=== PATIENT | male | born 1975 | race Caucasian/White ===

== ENCOUNTER 2021-01-02 13:00 | Inpatient (IN) | payer BC ==
[2021-01-02] MEDS ORDERED: Morphine 4 MG/ML VIAL ONE (13:32)
[2021-01-02] MEDS ORDERED: Ondansetron PF 4 MG/2 ML Vial ONE ×2 (13:32→15:37)
[2021-01-02 13:39] LABS: #Basophils 0.1 thou/uL (0.0-0.2); #Lymphocytes 2.4 thou/uL (1.20-3.40); #Monocytes 0.8 thou/uL (0.11-0.59); #Neutrophils 11.2 thou/uL (1.40-6.50); %Basophils 0.7 % (0.0-1.0); %Eosinophils 0.2 % (0.0-10.0); %Lymphocytes 16.6 % (21.0-51.0); %Monocytes 5.8 % (0.0-10.0); %Neutrophils 76.8 % (42.0-75.0); Hemoglobin 14.7 g/dL (14.0-18.0); Mean Corpuscular HGB CONC 35.9 g/dL (32.0-36.0); Mean Corpuscular Hemoglobin 34.9 pg (27.0-31.0); Mean Corpuscular Volume 97.2 fL (78.0-98.0); Mean Platelet Volume 7.2 fL (7.4-10.4); Platelet Count 259 thou/uL (130-400); Red Blood Cell (RBC) Count 4.22 mill/uL (4.70-6.10); White Blood Cell (WBC) Count 14.6 thou/uL (4.8-10.8)
[2021-01-02 14:00] LABS: ALT (SGPT) 32 U/L (8-55); AST (SGOT) 25 U/L (5-34); Albumin 4.4 g/dL (3.5-5.0); Alkaline Phosphatase 65 U/L (40-110); Anion Gap 18 mmol/L (10-20); BUN (Urea Nitrogen) 5 mg/dL (8.9-20.6); Bilirubin, Total 0.3 mg/dL (0.2-1.2); Calc. Creatinine Clearance 0 mL/min (70-130); Calcium 8.8 mg/dL (7.8-10.44); Carbon Dioxide 21 mmol/L (22-29); Chloride 96 mmol/L (98-107); Globulin 3.2 g/dL (2.4-3.5); Glucose 118 mg/dL (70-105); Potassium 3.4 mmol/L (3.5-5.1); Protein, Total 7.6 g/dL (6.0-8.3); Sodium 132 mmol/L (136-145)
[2021-01-02] MEDS ORDERED: Fentanyl 100 MCG/2 ML VIAL ONE ×3 (14:09→19:40)
[2021-01-02] MEDS ORDERED: Phenylephrine 10 MG/ML VIAL ONE ×3 (14:35→14:52)
[2021-01-02] MEDS ORDERED: Thrombin 5000 UNITS/5 ML VIAL ONE (14:41)
[2021-01-02] MEDS ORDERED: Sodium Chloride 0.9% 20 ML ONE (14:41)
[2021-01-02] MEDS ORDERED: Dexamethasone 10 MG/ML VIAL ONE (14:46)
[2021-01-02] MEDS ORDERED: Boostrix 0.5 ML (Tdap) VIAL ONE (14:46)
[2021-01-02] MEDS ORDERED: Dextrose 50% Abboject 50 ML SYRINGE SLOW IVP PRN (14:51)
[2021-01-02] MEDS ORDERED: Ondansetron ODT 4 MG TAB PO PRN (14:51)
[2021-01-02] MEDS ORDERED: Ondansetron PF 4 MG/2 ML Vial IVP PRN (14:51)
[2021-01-02] MEDS ORDERED: hydrALAZINE 20 MG/ML VIAL SLOW IVP PRN (14:51)
[2021-01-02] MEDS ORDERED: Dextrose 5% in Water 1,000 ML IV PRN (14:51)
[2021-01-02] MEDS ORDERED: Promethazine HCl 25 MG/ML VIAL IM PRN ×2 (14:51→19:24)
[2021-01-02] MEDS ORDERED: Morphine 4 MG/ML VIAL SLOW IVP PRN (14:51)
[2021-01-02] MEDS ORDERED: Morphine 2 MG/ML VIAL SLOW IVP PRN (14:51)
[2021-01-02 15:03] LABS: INR-International Normal Ratio 0.9; Prothrombin Time 11.9 sec (12.0-14.7)
[2021-01-02 15:04] LABS: Magnesium 1.7 mg/dL (1.6-2.6); PTT 30.7 sec (22.9-36.1); Phosphorus 3.2 mg/dL (2.3-4.7)
[2021-01-02] MEDS ORDERED: Lidocaine 1% PF 5 ML VIAL ONE (15:37)
[2021-01-02] MEDS ORDERED: PROPOFOL 200 MG/20 ML VIAL ONE (15:37)
[2021-01-02] MEDS ORDERED: ePHEDrine 50 MG/ML VIAL ONE (15:37)
[2021-01-02] MEDS ORDERED: Rocuronium Bromide 10 MG/ML (10ML VIAL) ONE (15:37)
[2021-01-02] MEDS ORDERED: Glycopyrrolate 0.2 MG/ML 5 ML SYRINGE ONE (15:37)
[2021-01-02 15:41] LABS: SARS-CoV-2 NAA Rapid Test Not Detected (NotDetected)
[2021-01-02] MEDS ORDERED: Mag-Al 1200 mg/1200 mg/30 ML UDCUP PO PRN (15:45)
[2021-01-02] MEDS ORDERED: Milk Of Magnesia 30 ML UDCUP PO PRN (15:45)
[2021-01-02] MEDS ORDERED: Bisacodyl 10 MG SUPP PR PRN (15:45)
[2021-01-02] MEDS ORDERED: traMADol HCl 50 MG TAB PO PRN ×2 (15:47)
[2021-01-02] MEDS ORDERED: Diazepam 5 MG TAB PO SCH (16:00)
[2021-01-02] MEDS ORDERED: Acetaminophen 500 MG TAB PO SCH (16:00)
[2021-01-02] MEDS ORDERED: Magnesium Sulfate 2 GM in Sodium Chloride 0.9% 100 ML IVPB SCH (17:00)
[2021-01-02] MEDS ORDERED: Bacitracin Zinc Ointment 30 gm TUBE ONE (17:03)
[2021-01-02] MEDS ORDERED: HYDROmorphone 2 MG/ML VIAL ONE (18:35)
[2021-01-02] MEDS ORDERED: PACU-Morphine 4MG/ML VIAL SLOW IVP PRN (19:24)
[2021-01-02] MEDS ORDERED: Promethazine HCl 25 MG/ML VIAL SLOW IVP PRN (19:24)
[2021-01-02] MEDS ORDERED: Ondansetron HCl/PF 4 MG/2 ML Vial IVP PRN (19:24)
[2021-01-02] MEDS ORDERED: HYDROmorphone 2 MG/ML VIAL SLOW IVP PRN (19:24)
[2021-01-02] MEDS: Dexamethasone 4 mg/ml Vial SLOW IVP SCH (20:35)
[2021-01-02] MEDS: Famotidine/PF 20 mg/2ml Vial SLOW IVP SCH (20:36)
[2021-01-02] MEDS: HYDROcodone/Acetaminophen 7.5/325 mg Tablet PO PRN (20:37)
[2021-01-02] MEDS: Senokot S 8.6-50 MG TAB PO SCH (20:38)
[2021-01-02] MEDS: Sodium Chloride 0.9% 1,000 ML IV SCH (20:39)
[2021-01-02 20:44] VITALS: BMI 22.5
[2021-01-02] MEDS ORDERED: Gabapentin 300 MG CAP PO SCH (21:00)
[2021-01-02] MEDS ORDERED: Potassium Phosphate 30 MMOL, Magnesium Sulfate 2 GM in Sodium Chloride 0.9% 250 ML 250 ML IVPB SCH (21:00)
[2021-01-02] MEDS: Oxazepam 10 MG CAP PO SCH (21:28)
[2021-01-02] MEDS: Nicotine 21 MG PATCH TOP SCH (21:28)
[2021-01-02] MEDS: Cyclobenzaprine 10 MG TAB PO PRN (21:28)
[2021-01-02] MEDS: CEFAZOLIN 2 GM in Premix Bag 1 BAG IVPB SCH (23:40)
[2021-01-03] MEDS: HYDROcodone/Acetaminophen 7.5/325 mg Tablet PO PRN ×3 (02:57→19:03)
[2021-01-03] MEDS: Dexamethasone 4 mg/ml Vial SLOW IVP SCH ×4 (02:58→20:14)
[2021-01-03] MEDS: traMADol HCl 50 MG TAB PO PRN ×2 (03:01→16:45)
[2021-01-03] MEDS: Oxazepam 10 MG CAP PO SCH ×3 (05:24→21:20)
[2021-01-03] MEDS: Cyclobenzaprine 10 MG TAB PO PRN (05:24)
[2021-01-03 05:30] LABS: #Lymphocytes 0.6 thou/uL (1.20-3.40); #Neutrophils 15.1 thou/uL (1.40-6.50); %Eosinophils 0.1 % (0.0-10.0); %Lymphocytes 3.4 % (21.0-51.0); %Monocytes 5.9 % (0.0-10.0); %Neutrophils 90.6 % (42.0-75.0); Hemoglobin 12.3 g/dL (14.0-18.0); Mean Corpuscular HGB CONC 34.2 g/dL (32.0-36.0); Mean Corpuscular Hemoglobin 34.3 pg (27.0-31.0); Mean Platelet Volume 7.3 fL (7.4-10.4); Platelet Count 218 thou/uL (130-400); RBC Distribution Width 11.1 % (11.5-14.5); Red Blood Cell (RBC) Count 3.58 mill/uL (4.70-6.10); White Blood Cell (WBC) Count 16.6 thou/uL (4.8-10.8)
[2021-01-03 05:39] LABS: PTT 29.2 sec (22.9-36.1); Prothrombin Time 13.2 sec (12.0-14.7)
[2021-01-03 05:53] LABS: Anion Gap 16 mmol/L (10-20); BUN (Urea Nitrogen) 11 mg/dL (8.9-20.6); Calc. Creatinine Clearance 107 mL/min (70-130); Calcium 7.8 mg/dL (7.8-10.44); Carbon Dioxide 22 mmol/L (22-29); Chloride 102 mmol/L (98-107); Glucose 142 mg/dL (70-105); Magnesium 2.2 mg/dL (1.6-2.6); Potassium 4.3 mmol/L (3.5-5.1); Sodium 136 mmol/L (136-145)
[2021-01-03 05:54] LABS: Phosphorus 3.7 mg/dL (2.3-4.7)
[2021-01-03] MEDS: CEFAZOLIN 2 GM in Premix Bag 1 BAG IVPB SCH ×2 (08:58→15:35)
[2021-01-03] MEDS: Senokot S 8.6-50 MG TAB PO SCH ×2 (08:59→20:14)
[2021-01-03] MEDS: Polyethylene Glycol 3350 17 GM Packet PO SCH (08:59)
[2021-01-03] MEDS: Famotidine/PF 20 mg/2ml Vial SLOW IVP SCH ×2 (09:00→20:17)
[2021-01-03] MEDS: Pregabalin 75 MG CAP PO SCH ×2 (09:00→20:13)
[2021-01-03] MEDS: Sodium Chloride 0.9% 1,000 ML IV SCH ×3 (09:01→22:31)
[2021-01-03] MEDS: Acetaminophen 325 MG TAB PO PRN (16:43)
[2021-01-03] MEDS: Acetaminophen/Codeine 30-300mg Tablet PO PRN (16:44)
[2021-01-03] MEDS ORDERED: Artificial Tear Sol 15 ML BOT EA EYE PRN (21:14)
[2021-01-03] MEDS: Nicotine 21 MG PATCH TOP SCH (21:20)
[2021-01-04] MEDS: CEFAZOLIN 2 GM in Premix Bag 1 BAG IVPB SCH ×3 (00:17→16:55)
[2021-01-04] MEDS: HYDROcodone/Acetaminophen 7.5/325 mg Tablet PO PRN ×2 (03:16→10:22)
[2021-01-04] MEDS: Dexamethasone 4 mg/ml Vial SLOW IVP SCH ×4 (03:17→20:01)
[2021-01-04] MEDS: Sodium Chloride 0.9% 1,000 ML IV SCH (03:21)
[2021-01-04] MEDS: Oxazepam 10 MG CAP PO SCH ×3 (05:23→21:59)
[2021-01-04] MEDS: Famotidine/PF 20 mg/2ml Vial SLOW IVP SCH (08:19)
[2021-01-04] MEDS ORDERED: Pregabalin 75 MG CAP PO SCH (09:00)
[2021-01-04] MEDS: Folic Acid 1 MG TAB PO SCH (09:13)
[2021-01-04] MEDS: Thiamine 100 MG TAB PO SCH (09:14)
[2021-01-04] MEDS: Famotidine 20 MG TAB PO SCH ×2 (09:14→19:59)
[2021-01-04] MEDS: Polyethylene Glycol 3350 17 GM Packet PO SCH (09:14)
[2021-01-04] MEDS: Senokot S 8.6-50 MG TAB PO SCH ×2 (09:15→20:10)
[2021-01-04] MEDS: Pregabalin 75 MG CAP PO SCH ×2 (12:31→20:00)
[2021-01-04] MEDS: traMADol HCl 50 MG TAB PO PRN (12:41)
[2021-01-04] MEDS: Acetaminophen 325 MG TAB PO PRN (12:42)
[2021-01-04] MEDS: Acetaminophen/Codeine 30-300mg Tablet PO PRN ×2 (12:42→19:59)
[2021-01-04] MEDS: Cyclobenzaprine 10 MG TAB PO PRN ×2 (14:44→21:59)
[2021-01-04] MEDS ORDERED: traMADol HCl 50 MG TAB PO PRN (18:07)
[2021-01-04] MEDS: Nicotine 21 MG PATCH TOP SCH (21:59)
[2021-01-05] MEDS: CEFAZOLIN 2 GM in Premix Bag 1 BAG IVPB SCH ×2 (00:02→09:03)
[2021-01-05] MEDS: Acetaminophen/Codeine 30-300mg Tablet PO PRN ×4 (00:06→14:28)
[2021-01-05] MEDS: Dexamethasone 4 mg/ml Vial SLOW IVP SCH ×3 (03:45→14:28)
[2021-01-05] MEDS: Oxazepam 10 MG CAP PO SCH ×2 (06:12→13:49)
[2021-01-05] MEDS: Thiamine 100 MG TAB PO SCH (09:01)
[2021-01-05] MEDS: Pregabalin 75 MG CAP PO SCH ×2 (09:01→13:48)
[2021-01-05] MEDS: Famotidine 20 MG TAB PO SCH (09:01)
[2021-01-05] MEDS: Folic Acid 1 MG TAB PO SCH (09:02)
[2021-01-05] MEDS: Polyethylene Glycol 3350 17 GM Packet PO SCH (09:40)
[2021-01-05] MEDS: Senokot S 8.6-50 MG TAB PO SCH (09:40)
[2021-01-05 11:58] VITALS: BP 151/83; TEMP 98
[2021-01-05] MEDS ORDERED: tiZANidine HCl 4 MG TAB PO SCH (14:00)
== END 2021-01-05 15:10 | disposition home health service (06) | DRG 28 ==
LOC: ERS 13:00 → SDC 15:34 → SURG A 20:52
PROVIDERS: ADMIT Surgery; ATTEND Surgery
PROC: 0RG10A0 Fusion of Cervical Vertebral Joint with Interbody Fusion Device, Anterior Approach, Anterior Column, Open Approach (ICD-10-PCS; principal; 2021-01-02)
PROC: 0RG10K1 Fusion of Cervical Vertebral Joint with Nonautologous Tissue Substitute, Posterior Approach, Posterior Column, Open Approach (ICD-10-PCS; 2021-01-02)
PROC: 0RB30ZZ Excision of Cervical Vertebral Disc, Open Approach (ICD-10-PCS; 2021-01-02)
PROC: 00NW0ZZ Release Cervical Spinal Cord, Open Approach (ICD-10-PCS; 2021-01-02)
PROC: 01N10ZZ Release Cervical Nerve, Open Approach (ICD-10-PCS; 2021-01-02)
DX: S14.127A Central cord syndrome at C7 level of cervical spinal cord, initial encounter (principal); G82.54 Quadriplegia, C5-C7 incomplete; S02.832A Fracture of medial orbital wall, left side, initial encounter for closed fracture; E87.1 Hypo-osmolality and hyponatremia; G95.9 Disease of spinal cord, unspecified; V80.010A Animal-rider injured by fall from or being thrown from horse in noncollision accident, initial encounter; F10.129 Alcohol abuse with intoxication, unspecified; M48.02 Spinal stenosis, cervical region; Z20.822 Contact with and (suspected) exposure to COVID-19; I10 Essential (primary) hypertension; S09.93XA Unspecified injury of face, initial encounter; E87.5 Hyperkalemia
CPT/HCPCS: 0240U; 36415; 70450; 70486; 71045; 76000; 80048; 80053; 83735; 84100; 85025; 85610; 85730; 86850; 86900; 86901; 90471; 90715; 93005; 96374; 96375; C1713; C1776; J0690; J1100; J1170; J2270; J2370; J2405; J2704; J3010; J3370; J3475; J3490; J7050; S0028

== ENCOUNTER 2021-02-10 14:26 | Outpatient (CLI) | payer BC | END 2021-02-10 14:27 | disposition home or self-care (01) | LOC: TBSIIMAG 14:26 | PROVIDERS: ATTEND Surgery | DX: S14.109A Unspecified injury at unspecified level of cervical spinal cord, initial encounter (principal); M48.02 Spinal stenosis, cervical region; M47.22 Other spondylosis with radiculopathy, cervical region; Z98.1 Arthrodesis status | CPT/HCPCS: 72040 ==